=== PATIENT | female | born 2000 | race African-American/Black ===

== ENCOUNTER 2023-11-11 19:15 | Emergency (ER) | payer OTHER, SELFPAY ==
--- NOTE | ~2023-11-11 | CT_ITS ---
CT abdomen pelvis wo con Ordering provider: Leonel Conrad MD History: 23 years Female with . LLQ ABD PAIN X 4 HRS. . Comparison: None. Technique: CT abdomen and pelvis without IV and without oral contrast. Automated exposure control and iterative reconstruction technique were employed. The dose-length product was 904.02 mGy-cm. Findings: VISUALIZED LOWER CHEST: Normal. UPPER ABDOMINAL ORGANS: Liver: Normal. Gallbladder: Normal. Spleen: Normal. Stomach/duodenum: Normal. Pancreas: Normal. Adrenals: Normal. Kidneys: Normal. PELVIC ORGANS: The bladder is underfilled. Large left ovarian cyst is seen measuring 6.7x6.9cm. The p ossibility of torsion cannot be excluded. Clinical correlation advised. BOWEL AND MESENTERY: Colon: No evidence of diverticulitis.. Small appendicolith is noted in the appendix with no definite inflammatory changes. Clinical correlation advised. Small Bowel: Normal. No obstruction. Peritoneum/mesentery: No free air or free fluid.. Enlarged mesenteric lymph nodes are noted with the largest measuring measuring 2.2 cm. RETROPERITONEUM: Normal aorta. No retroperitoneal lymphadenopathy. MUSCULOSKELETAL: Superficial soft tissues: Small fat-containing umbilical hernia. The superficial soft tissues are nor mal. Bones: Normal spine. IMPRESSION: 1. Large cystic structure in the left side of the pelvis which may be ovarian cyst. Torsion in the o vary cannot be excluded. Clinical correlation advised. Lymphadenopathy in the mesentery area. Reviewed, dictated and finalized at location A. IMPRESSION: 1. Large cystic structure in the left side of the pelvis which may be ovarian cyst. Torsion in the ovary cannot be excluded. Clinical correlation advised. Lymphadenopathy in the mesentery area.
[2023-11-11 19:18] VITALS: BP 132/89; PULSE 88; RESP 18; TEMP 37; O2SAT 99
[2023-11-11 19:19] VITALS: BP 132/89; PULSE 88; RESP 18; TEMP 37; O2SAT 99
--- NOTE | 2023-11-11 19:19 | PC.NURSE ---
pt aware ua is needed. unable to urinate at this time
--- NOTE | 2023-11-11 19:30 | ED.ABDPAIN ---
HPI - Abdominal Pain General Chief Complaint: Abdominal Pain Stated Complaint: abdominal pain Source: patient Mode of arrival: ambulatory Limitations: no limitations History of Present Illness HPI narrative: Patient is a 23-year-old female with left lower quadrant abdominal pain for the past 2-3 hours. Pain is sharp. Associated nausea without vomiting. She had 1 bout of diarrhea. No concerns for at this time. MD elicited complaint: abdominal pain Onset (ago): hour(s) (2-3) Pain Consistency: constant Location: LLQ Severity: moderate Pain scale (0-10): 5 Quality: sharp Radiation: suprapubic Migration to: no migration Exacerbating factors: nothing Relieving factors: nothing Context: confirms other ( None) Associated symptoms: nausea and diarrhea Related Data Home Medications Medication Instructions Recorded Confirmed Wegovy 0.5 mg IM WEEKLY 11/11/23 11/11/23 metformin 1,000 mg PO DAILY 11/11/23 11/11/23 topiramate 50 mg tablet 50 mg PO DAILY 11/11/23 11/11/23 Allergies Allergy/AdvReac Type Severity Reaction Status Date / Time No Known Allergies Allergy Verified 11/11/23 19:18 Review of Systems Review of Systems: All systems reviewed & are unremarkable except as noted in HPI and below Constitutional: Constitutional: Reports no additional constitutional complaints Eyes: Eyes: Reports no additional eye complaints ENT: Reports system reviewed and no additional complaints, except as documented Cardiovascular: Cardiovascular: Reports no additional cardiovascular complaints Respiratory: Respiratory: Reports no additional respiratory complaints Gastrointestinal: Gastrointestinal: Reports no additional gastrointestinal complaints Genitourinary: Genitourinary: Reports no additional female genitourinary complaints Musculoskeletal: Musculoskeletal: Reports no additional musculoskeletal complaints Integumentary/Breasts: Skin/Breast: Reports system reviewed and no additional complaints, except as docu Neurologic: Reports system reviewed and no additional complaints, except as documented Psychiatric: Psychiatric: Reports no additional psychiatric complaints Endocrine: Endocrine: Reports no additional endocrine complaints Hematologic/Lymphatic: Hematologic/Lymphatic: Reports no additional hematologic/lymphatic complaints Allergic/Immunologic: Allergic/Immunologic: Reports no additional allergic/immunologic complaints Exam Const: General: healthy appearing Nutritional Appearance: well nourished Orientation/consciousness: patient oriented x3 HENMT: Head: normal to inspection Ears: external ears normal Face/Nose/Sinus: Normal external nose present Eyes: Conjunctivae: conjunctivae normal Pupils: Equal, round and reactive pupils present EOM: EOMs intact bilaterally Neck: Neck: normal visual inspection Chest: Chest palpation & inspection: normal inspection of the chest Resp: Effort & Inspection: normal respiratory effort and not labored Auscultation: clear to auscultation bilaterally and no crackles Cardio: Rate: regular rate Rhythm: regular rhythm Heart sounds: no murmurs GI: Inspection: non-distended GI Palp: Yes Soft to palpation, Yes Tenderness to palpation present (GI) ( left lower quadrant and suprapubic), No Guarding due to palpation present (GI), No Rigid due to palpation, No Hernia present, No Palpable mass present and No Rebound tenderness present Auscultation: normal bowel sounds : General: Yes bladder normal to palpation Back/Spine/Pelvis: Back: no CVA tenderness Skin: General skin exam: normal color Rashes: no rashes Wounds: no wounds Neuro: General: patient oriented x3 Cranial nerves: Yes Nystagmus not present Speech: normal speech Gait exam (Neuro): Normal gait present Extrem: General: normal to inspection Psych: Mental Status: mental status grossly normal Affect: normal affect Attitude: cooperative Course Vital Signs Vital signs: Vital Signs Te
--- NOTE | 2023-11-11 19:34 | PC.NURSE ---
pt taken to bathroom for urine sample
[2023-11-11 19:46] LABS: Basophils Absolute Auto 0.05 K/mm3 (0.00-0.10); Basophils Percent Auto 0.5 % (0.0-1.0); Eosinophils Percent Auto 2.2 % (1.0-6.0); Hematocrit 40.8 % (35.0-49.0); Hemoglobin 13.8 g/dL (12.0-15.0); Immature Granulocyte Absolute 0.02 K/mm3 (0.00-0.00); Immature Granulocyte Percent A 0.2 % (0.0-0.0); Lymphocytes Absolute Auto 2.44 K/mm3 (1.10-4.50); Lymphocytes Percent Auto 26.7 % (18.0-42.0); Mean Corpuscular HGB Conc 33.8 g/dL (32-36); Mean Corpuscular Hemoglobin 27.6 pg (27.0-31.0); Mean Corpuscular Volume 81.6 fL (78.0-102.0); Mean Platelet Volume 10.3 fl (9.2-11.8); Monocytes Absolute Auto 0.56 K/mm3 (0.10-0.90); Monocytes Percent Auto 6.1 % (2.0-11.0); Neutrophils Absolute Auto 5.86 K/mm3 (1.70-7.20); Neutrophils Percent Auto 64.3 % (50.0-70.0); Platelet Count Result 238 K/mm3 (150-420); Red Cell Distribution Width 14.6 % (11.6-14.4); White Blood Count 9.1 K/mm3 (4.8-10.8)
[2023-11-11 19:47] LABS: Add Urine Microscopic? YES; Appearance Urine Clear (Clear); Bilirubin Urine 1+ (Negative); Blood Urine Negative (Negative); Color Urine Yellow (Yellow); Glucose Urine UA Negative (Negative); Ketones Urine 1+ (Negative); Leukocyte Esterase Ur Negative LEU/UL (Negative); Nitrate Urine Negative (Negative); Protein Urine Negative (Negative); Specific Grav Ur >= 1.030 (1.010-1.020)
[2023-11-11 19:53] LABS: Bacteria Urine 1+ /hpf; Budding Yeast Urine Present /hpf; Mucus Urine Moderate /lpf; RBC Urine 0-2 /hpf (0-2); Squamous Epithelial Cell Urine Moderate /hpf (Few); WBC Urine 0-3 /hpf (0-3)
[2023-11-11 19:54] LABS: Pregnancy On Board Control Positive; Urine Pregnancy Test Negative
[2023-11-11 20:03] LABS: Alanine Aminotransferase 33 U/L (14-59); Albumin Level 3.7 g/dL (3.4-5.0); Alkaline Phosphatase 107 U/L (46-116); Anion Gap 9 mmol/L (4-12); Aspartate Amino Transferase 16 U/L (15-37); Bilirubin,Total 0.6 mg/dL (0.00-1.00); Blood Urea Nitrogen 7 mg/dL (7-18); Calcium 9.2 mg/dL (8.5-10.1); Carbon Dioxide 25 mmol/L (21-32); Chloride 104 mmol/L (98-108); Estimated CRCL calculation 125 ml/min; Estimated Glomerular Filt Rate > 60; Glucose 93 mg/dL (70-99); Lipase 17 U/L (16-77); Osmolality Calculated 284 mOsm/kg (285-295); Potassium 3.8 mmol/L (3.5-5.1); Sodium 138 mmol/L (136-145); Total Protein 7.5 g/dL (6.4-8.2)
[2023-11-11 20:10] LABS: Lactic Acid Reflex 0.8 mmol/L (0.4-2.0)
--- NOTE | 2023-11-11 20:18 | PC.NURSE ---
There is currently a problem with PACS. ERP received verbal report from RT Ivan for pt's brain CT. No acute hemorrhage or infarct. No bone fx. ERP said it is ok to give pt a cup of water.
--- NOTE | 2023-11-11 20:54 | PC.NURSE ---
Pt resting comfortably in stretcher. Waiting on CT results. Friend at bedside.
--- NOTE | 2023-11-11 21:10 | PC.NURSE ---
Pt resting comfortably in stretcher. Friend at bedside. Still waiting on CT report due to PACS being down. Notified pt.
[2023-11-11 21:43] VITALS: BP 135/72; PULSE 67; RESP 18; O2SAT 100
== END 2023-11-11 22:27 | disposition short-term general hospital (02) ==
PROVIDERS: Emergency Provider Emergency Medicine; PCP Family Medicine
DX: N83.202 Unspecified ovarian cyst, left side (principal); Z79.84 Long term (current) use of oral hypoglycemic drugs
CPT/HCPCS: 36415; 74176; 80053; 81001; 81025; 83605; 83690; 85025; 99285

== ENCOUNTER 2023-11-11 22:59 | Emergency (ER) | payer OTHER, SELFPAY ==
--- NOTE | ~2023-11-11 | US_ITS ---
Pelvic ultrasound. Clinical History: Pelvic pain, torsion Technique: Realtime transabdominal and transvaginal scanning of the pelvis was performed. Color flow Doppler and Doppler spectral analysis were performed. Findings: The uterus is anteverted. The endometrial stripe has a thickness of 5 mm. No focal mass is identified. The right ovary measures 3.8 x 2.2 x 3.4 cm. No significant right ovarian or adnexal mass is seen. Left ovary overall measures 8.9 x 5.8 by 7.2 cm in size. There is a 4.6 x 4.9 x 5.6 cm cystic mass in the left ovary, with some eccentric low-level echoes, likely large resolving hemorrhagic cyst. Vascular flow present in both ovaries on Doppler spectral analysis. There is small to moderate free fluid in the cul de sac. Impression: 5.6 cm hemorrhagic left ovarian cyst with [id number] free fluid, possibly related to prior cys t rupture. Follow-up exam in 6-8 weeks should be considered to assess for resolution of the cyst. No evidence for torsion. Reviewed, dictated and finalized at location . Impression: 5.6 cm hemorrhagic left ovarian cyst with [id number] free fluid, possibl y related to prior cyst rupture. Follow-up exam in 6-8 weeks should be consider ed to assess for resolution of the cyst. No evidence for torsion.
[2023-11-11 23:07] VITALS: BP 122/78; PULSE 77; RESP 20; TEMP 36.6; O2SAT 100
--- NOTE | 2023-11-11 23:25 | PC.NURSE ---
Patient taken to US at this time.
--- NOTE | 2023-11-12 00:46 | ED.ABDPAIN ---
HPI - Abdominal Pain General Chief Complaint: Abdominal Pain Stated Complaint: rule out torsion from [place] Time Seen by Provider: 11/11/23 23:04 Source: patient Mode of arrival: EMS Limitations: no limitations History of Present Illness HPI narrative: Patient is a 23-year-old female who presents the ED via EMS with report of left lower abdominal pain. Patient reports she developed pain throughout her left lower abdomen today. Pain continued to increase in severity. She was then seen at [place] [facility] and had a CT scan of her abd/pelvis performed which showed a large left-sided ovarian cyst. Unable to rule out torsion. Their facility did not have ultrasound capabilities, so patient was transferred via EMS to rule out torsion. Patient denies any previous history of ovarian cyst. She reported mild nausea today which has since resolved. Denies vomiting. Denies fevers. Denies vaginal bleeding, dysuria, hematuria. Related Data Home Medications Medication Instructions Recorded Confirmed Wegovy 0.5 mg IM WEEKLY 11/11/23 11/11/23 metformin 1,000 mg PO DAILY 11/11/23 11/11/23 topiramate 50 mg tablet 50 mg PO DAILY 11/11/23 11/11/23 Allergies Allergy/AdvReac Type Severity Reaction Status Date / Time No Known Allergies Allergy Verified 11/11/23 19:18 Review of Systems Review of Systems: All systems reviewed & are unremarkable except as noted in HPI. All systems reviewed & are unremarkable except as noted in HPI and below Exam Narrative: GENERAL: Well appearing, well-nourished, non-toxic, in no acute distress. HEAD: Normocephalic, atraumatic. RESPIRATORY: Airway patent, respirations nonlabored. CARDIOVASCULAR: Regular rate and rhythm without murmurs, rubs, or gallops. ABDOMINAL: Soft, mild tenderness throughout suprapubic region and left lower quadrant. Nondistended. Normoactive BS. MUSCULOSKELETAL: Moves all extremities. No gross deformities. SKIN: Warm, dry, normal color. NEURO: A&O X3. Speech clear. PSYCHIATRIC: Appropriate mood and affect. Normal interaction. Course Vital Signs Vital signs: Vital Signs Temperature 98 F 11/11/23 23:07 Pulse Rate 77 11/11/23 23:07 Respiratory Rate 20 11/11/23 23:07 Blood Pressure 122/78 11/11/23 23:07 Pulse Oximetry 100 11/11/23 23:07 Oxygen Delivery Room Air 11/11/23 23:07 Temperature 98 F 11/12/23 01:10 Pulse Rate 77 11/12/23 01:10 Respiratory Rate 20 11/12/23 01:10 Blood Pressure 108/79 11/12/23 01:10 Pulse Oximetry 100 11/12/23 01:10 Oxygen Delivery Room Air 11/11/23 23:07 MDM - Abdominal Pain MDM Narrative Medical decision making narrative: Patient presented to ED as transfer from [facility] for evaluation of ovarian torsion. LLQ pain began today. Records reviewed from ED visit. Laboratory studies were unremarkable. No leukocytosis. Stable H&H. Urine with likely contamination. No significant signs of infection. Patient denies any urinary complaints. CT reviewed: IMPRESSION: 1. Large cystic structure in the left side of the pelvis which may be ovarian cyst. Torsion in the ovary cannot be excluded. Clinical correlation advised. Lymphadenopathy in the mesentery area. Pelvic ultrasound was obtained here and does show 5.6 cm likely hemorrhagic cyst, no evidence of torsion. Otherwise unremarkable. Upon my evaluation, patient is resting comfortably, vitals are stable. No evidence of hemodynamic instability. She has denies significant pain. She did not receive any pain medication at outside ED. She was amenable to Tylenol/ibuprofen here. She otherwise feels comfortable going home. Feels pain is much more manageable. Has never seen an OBGYN previously. Will be referred to on-call OBGYN, Dr. Michelle for further evaluation of cyst and repeat imaging in the future. Patient was given strict return precautions. She is in agreement this plan. Discharged in stable condition. Medical Records Attestation: I revi
[2023-11-12] MEDS: ACETAMINOPHEN 500 MG TABLET 1000 MG PO (01:02)
[2023-11-12] MEDS: KETOROLAC 30 MG/ML VIAL (*BKC) IV PUSH (01:03)
[2023-11-12 01:10] VITALS: BP 108/79; PULSE 77; RESP 20; TEMP 36.6; O2SAT 100
== END 2023-11-12 01:12 | disposition home or self-care (01) ==
PROVIDERS: Emergency Provider Physician Assistant; PCP Family Medicine
DX: N83.202 Unspecified ovarian cyst, left side (principal)
CPT/HCPCS: 76856; 96374; 99284; A9270; J1885